=== PATIENT | female | born 1945 | race Caucasian/White ===

== ENCOUNTER → 2017-04-13 | Outpatient (CLI) | payer MEDICARE, OTHER | LOC: MC.RAD 09:40 | DX: Z12.31 Encounter for screening mammogram for malignant neoplasm of breast (principal) ==

== ENCOUNTER 2017-07-25 09:22 | Day surgery (SDC) | payer MEDICARE, OTHER ==
[~2017-07-25] VITALS: Ht 162.6 cm; Wt 107.0 kg
[2017-07-25] MEDS ORDERED: PRILOSEC 20MG20 MG PO (09:45)
[2017-07-25] MEDS ORDERED: FOSAMAX 70MG TA70 MG PO (09:46)
[2017-07-25] MEDS ORDERED: PROFERRIN ES12 MG PO (09:47)
[2017-07-25] MEDS ORDERED: OSCAL 500 TAB500 MG PO (09:47)
[2017-07-25] MEDS ORDERED: VITAMIN C500 MG PO (09:47)
[2017-07-25] MEDS ORDERED: D3-5050000 IU PO (09:48)
[2017-07-25] MEDS ORDERED: THE MEDICINE S200 M2 PO (09:50)
[2017-07-25] MEDS ORDERED: PRESERVISION1 SGL PO (09:50)
[2017-07-25] MEDS ORDERED: ASPIRIN 81M81 MG/TA2 PO (09:51)
[2017-07-25 09:52] VITALS: BP 144/89; PULSE 75; TEMP 98.3
[2017-07-25] MEDS ORDERED: PROAIR HFA0.09 MG/AC IH (09:52)
[2017-07-25 11:35] VITALS: BP 118/64; PULSE 70; TEMP 97.6
[2017-07-25 11:50] VITALS: BP 118/62; PULSE 70
[2017-07-25 12:05] VITALS: BP 133/61; PULSE 72
== END 2017-07-25 12:20 | disposition home or self-care (01) ==
LOC: SDCO 09:22
DX: K22.70 Barrett's esophagus without dysplasia (principal); K44.9 Diaphragmatic hernia without obstruction or gangrene; K29.60 Other gastritis without bleeding; M81.0 Age-related osteoporosis without current pathological fracture; J45.909 Unspecified asthma, uncomplicated
CPT/HCPCS: OP; J2250; J3010; J7030

== ENCOUNTER → 2018-05-29 | Outpatient (CLI) | payer MEDICARE, OTHER ==
[~2018-05-29] MED LIST: ASPIRIN 81M81 MG/TA2 PO; D3-5050000 IU PO; FOSAMAX 70MG TA70 MG PO; OSCAL 500 TAB500 MG PO; PRESERVISION1 SGL PO; PRILOSEC 20MG20 MG PO; PROAIR HFA0.09 MG/AC IH; PROFERRIN ES12 MG PO; THE MEDICINE S200 M2 PO; VITAMIN C500 MG PO
== END ==
LOC: MC.RAD 14:11
DX: Z12.31 Encounter for screening mammogram for malignant neoplasm of breast (principal)

== ENCOUNTER → 2019-06-20 | Outpatient (CLI) | payer MEDICARE, OTHER | LOC: MC.RAD 11:09 | DX: Z12.31 Encounter for screening mammogram for malignant neoplasm of breast (principal) ==

== ENCOUNTER → 2020-07-09 | Outpatient (CLI) | payer MEDICARE, OTHER | LOC: MC.RAD | DX: Z12.31 Encounter for screening mammogram for malignant neoplasm of breast (principal); R92.0 Mammographic microcalcification found on diagnostic imaging of breast ==

== ENCOUNTER → 2020-07-13 | Outpatient (CLI) | payer MEDICARE, OTHER | LOC: MC.RAD 10:00 | DX: R92.0 Mammographic microcalcification found on diagnostic imaging of breast (principal) ==

== ENCOUNTER → 2020-07-15 | Outpatient (CLI) | payer MEDICARE, OTHER | LOC: MC.RAD 08:30 | DX: Z98.890 Other specified postprocedural states (principal); Z98.82 Breast implant status; R92.0 Mammographic microcalcification found on diagnostic imaging of breast ==

== ENCOUNTER 2020-10-23 09:00 | Outpatient (RCR) | payer MEDICARE, OTHER | END 2020-11-15 | disposition home or self-care (01) | LOC: PT.GENESIS | DX: M47.16 Other spondylosis with myelopathy, lumbar region (principal); M19.90 Unspecified osteoarthritis, unspecified site ==

== ENCOUNTER → 2020-12-21 | Outpatient (CLI) | payer MEDICARE, OTHER ==
[2020-12-21 14:16] LABS: BASO % 0.9 % (0.0-2.0); GRAN # 3.1 (1.4-6.5); GRAN % 67.4 % (42.2-75.2); HEMATOCRIT 38.6 % (37.0-47.0); HEMOGLOBIN 12.6 g/dl (12.5-16.0); LYMPH # 0.8 (1.2-3.4); LYMPH % 17.6 % (20.0-51.0); MEAN CELL VOLUME 90 fl (80.0-100.0); MEAN CORPUSCULAR HEMOGLOBIN 29 pg (27.0-31.0); MEAN CORPUSCULAR HGB CONC 33 g/dl (33.0-37.0); MEAN PLATELET VOLUME 10.4 fl (7.4-10.4); MONO # 0.6 (0.1-0.6); MONO % 13.4 % (1.7-9.3); PLATELET COUNT 269 K/mm3 (130-400); RED BLOOD COUNT 4.31 M/mm3 (4.10-5.30); REDCELL DISTRIBUTION WIDTH-CV 17.3 % (11.5-14.5)
[2020-12-21 14:47] LABS: THYROID STIMULATING HORMONE 1.025 uIU/mL (0.350-4.940)
[2020-12-21 14:56] LABS: ALANINE AMINOTRANSFERASE 19 U/L (4-34); ALBUMIN 3.2 gm/dL (3.5-5.0); ALKALINE PHOSPHATASE 46 U/L (50-136); ANION GAP 4 mmol/L (7-16); AST,SGOT 21 U/L (15-37); BILIRUBIN,TOTAL < 0.1 mg/dL (0.0-1.0); BLOOD UREA NITROGEN 18 mg/dL (7-17); CALCIUM 8.9 mg/dL (8.4-10.2); CARBON DIOXIDE 25 mmol/L (22-30); CHLORIDE 108 mmol/L (98-107); CREATININE, serum 0.66 (0.52-1.25); GLUCOSE 83 mg/dL (74-106); POTASSIUM 4.3 mmol/L (3.4-5.0); SODIUM 137 mmol/L (137-145); TOTAL PROTEIN 5.7 gm/dL (6.4-8.2)
== END ==
LOC: ZCOL.LAB 13:47
PROVIDERS: Nurse Practitioner Family
DX: R53.83 Other fatigue (principal)

== ENCOUNTER → 2021-05-31 | Outpatient (RCR) | payer MEDICARE, OTHER | END | disposition home or self-care (01) | LOC: PT.GENESIS | DX: M54.59 Other low back pain (principal) ==

== ENCOUNTER 2021-06-23 11:00 | Outpatient (RCR) | payer MEDICARE, OTHER | END 2021-06-28 | disposition home or self-care (01) | LOC: PT.GENESIS | DX: M54.59 Other low back pain (principal) ==

== ENCOUNTER → 2021-08-10 | Outpatient (CLI) | payer MEDICARE, OTHER | LOC: MC.RAD 10:07 | DX: Z12.31 Encounter for screening mammogram for malignant neoplasm of breast (principal); M81.0 Age-related osteoporosis without current pathological fracture ==

== ENCOUNTER → 2023-11-21 | Outpatient (CLI) | payer MEDICARE, OTHER | LOC: MC.RAD 11:22 | DX: Z12.31 Encounter for screening mammogram for malignant neoplasm of breast (principal) ==